=== PATIENT | female | born 1965 | race American Indian/Alaskan Native ===

== ENCOUNTER 2020-04-09 09:20 | Emergency (ER) | payer OTHER ==
[2020-04-09 09:41] VITALS: BP 146/85
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
== END 2020-04-09 10:50 | disposition home or self-care (01) ==
LOC: ED 09:20
DX: S39.012A Strain of muscle, fascia and tendon of lower back, initial encounter (principal); I10 Essential (primary) hypertension; Z79.899 Other long term (current) drug therapy; Z98.890 Other specified postprocedural states; X50.0XXA Overexertion from strenuous movement or load, initial encounter; Y93.89 Activity, other specified; Y92.89 Other specified places as the place of occurrence of the external cause; Y99.8 Other external cause status
CPT/HCPCS: 99282

== ENCOUNTER 2020-05-30 11:32 | Emergency (ER) | payer OTHER ==
[2020-05-30 11:47] VITALS: BP 139/89
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
== END 2020-05-30 12:13 | disposition home or self-care (01) ==
LOC: ED 11:32
DX: S16.1XXA Strain of muscle, fascia and tendon at neck level, initial encounter (principal); B34.9 Viral infection, unspecified; I10 Essential (primary) hypertension; Z98.890 Other specified postprocedural states; Z79.899 Other long term (current) drug therapy; X58.XXXA Exposure to other specified factors, initial encounter; Y93.89 Activity, other specified; Y92.89 Other specified places as the place of occurrence of the external cause; Y99.8 Other external cause status
CPT/HCPCS: 99281

== ENCOUNTER 2022-01-30 15:39 | Emergency (ER) | payer OTHER ==
[2022-01-30 16:14] VITALS: BP 194/92
[2022-01-30] MEDS ORDERED: predniSONE 20 MG TAB PO ONE (18:24)
[2022-01-30] MEDS ORDERED: ACETAMINOPHEN W/CODEINE 300-30 MG TAB PO ONE ×2 (18:24)
[2022-01-30] MEDS ORDERED: CYCLOBENZAPRINE 10 MG TAB PO ONE (18:24)
[2022-01-30] MEDS ORDERED: KETOROLAC 10 MG TAB PO ONE (18:25)
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
== END 2022-01-30 19:34 | disposition home or self-care (01) ==
LOC: ED 15:39
DX: M54.9 Dorsalgia, unspecified (principal); I10 Essential (primary) hypertension
CPT/HCPCS: 99282